=== PATIENT | female | born 1965 | race Caucasian/White ===

== ENCOUNTER → 2021-10-22 11:25 | Outpatient (BNVA) | payer SELFPAY | PROVIDERS: Family Provider Nurse Practitioner Primary Care; Visit Provider Family Medicine | DX: S82.432A Displaced oblique fracture of shaft of left fibula, initial encounter for closed fracture (principal); W19.XXXA Unspecified fall, initial encounter; M79.672 Pain in left foot | CPT/HCPCS: 73610; 73630 ==

== ENCOUNTER → 2021-11-28 10:04 | Outpatient (BNVA) | payer SELFPAY | PROVIDERS: Family Provider Nurse Practitioner Primary Care; Visit Provider Orthopaedic Surgery | DX: S82.839A Other fracture of upper and lower end of unspecified fibula, initial encounter for closed fracture (principal); X58.XXXA Exposure to other specified factors, initial encounter | CPT/HCPCS: 73610 ==

== ENCOUNTER 2023-07-25 21:00 | Emergency (ER) | payer SELFPAY ==
[2023-07-25 21:12] VITALS: BP 133/86; PULSE 82; RESP 18; TEMP 36.6; O2SAT 98; BMI 38.7
[2023-07-25 21:40] LABS: Basophils # 0.1 10^3/uL (0.0-0.1); Basophils % 0.4 %; Eosinophils # 0.1 10^3/uL (0.0-0.8); Eosinophils % 0.5 %; Hematocrit 46.1 % (36-47); Lymphocytes # 2.2 10^3/uL (0.8-4.8); Lymphocytes % 14.4 %; Mean Corpuscular HGB Conc 30.2 g/dL (30-55); Mean Corpuscular Hemoglobin 29.4 pg (27-33); Mean Corpuscular Volume 97.7 fl (85-98); Mean Platelet Volume 8.8 fL (7.4-10.4); Monocytes # 0.6 10^3/uL (0.2-0.9); Monocytes % 4.2 %; Neutrophils # 12.14 10^3/uL (1.8-7.7); Nucleated Red Blood Cells % 0 %; Platelet Count 342 10^3/cmm (157-399); Red Blood Count 4.72 10^6/uL (3.85-5.65); Red Cell Distribution Width 13.7 % (12.1-15.1); White Blood Count 15.16 10^3/uL (3.29-11.43)
[2023-07-25 21:50] LABS: Alanine Aminotransferase 16 U/L (0-33); Albumin Level 4.1 g/dL (3.5-5.2); Alkaline Phosphatase 62 U/L (35-105); Aspartate Amino Transferase 18 U/L (0-32); Blood Urea Nitrogen 12 mg/dL (6-20); Carbon Dioxide 19 mmol/L (22-29); Chloride 102 mmol/L (98-107); Globulin 3.7 g/dL (1.3-4.6); Glomerular Filtration Rate 86.2 mL/min (90-130); Glucose 154 mg/dL (65-115); Lipase 46 U/L (13-60); Osmolality Calculated 283 mOsm/kg (285-295); Sodium 135 mmol/L (136-145); Total Bilirubin 0.2 mg/dL (0.15-1.2); Total Protein 7.8 g/dL (6.6-8.7)
[2023-07-25 21:53] LABS: Anion Gap 18.1 (5-19); Potassium 4.1 mmol/L (3.5-5.1)
== END 2023-07-25 23:33 | disposition left against medical advice (07) ==
LOC: ER 21:06
PROVIDERS: Nurse Practitioner Family; Emergency Provider Family Medicine; PCP Nurse Practitioner Primary Care
DX: Z53.21 Procedure and treatment not carried out due to patient leaving prior to being seen by health care provider (principal)
CPT/HCPCS: 36415; 80053; 83690; 85025

== ENCOUNTER 2025-03-10 07:59 | Emergency (ER) | payer SELFPAY ==
[2025-03-10 08:05] VITALS: BP 172/106; PULSE 120; RESP 20; TEMP 36.9; O2SAT 100
--- NOTE | 2025-03-10 08:33 | CT_ITS ---
WS: [id number] CT ABDOMEN AND PELVIS WITH CONTRAST HISTORY: pain rt flank/ruq TECHNIQUE: Imaging performed of the abdomen and pelvis with IV contrast. Single phase imaging of the abdomen. Coronal and sagittal reformats are submitted. All CT scans at [facility] use at least one of these dose optimization techniques: automated exposure control; mA and/or kV adjustment per patient size (includes targeted exams where dose is matched to clinical indication); or iterative reconstruction. IV CONTRAST: Omnipaque 350; 100 mL IV. Oral contrast: No DLP: 1053.05 mGy.cm COMPARISON: 10/28/2016 Lower thorax: Breathing motion artifact at the lung bases. Heart is normal size. Small hiatal hernia. Small lymph node adjacent to the distal esophagus. Liver/biliary system: Normal size with no intrahepatic dilatation. Gallbladder: Gallbladder is hydropic measuring 6.5 cm in diameter. There is mild wall thickening and pericholecystic edema. Stones are identified within the gallbladder on a recent ultrasound. The stones are not identified by CT. Normal common bile duct. Pancreas: Normal size pancreas and pancreatic duct. No adjacent inflammation. Spleen: Normal size spleen. No mass or infarct. Adrenal glands: Normal. Right kidney: Normal size kidney. There is mild cortical thinning but no obstruction. Left kidney: Nonobstructing calcification central renal pelvis. Aorta: Mild atherosclerosis with no aneurysm. Lymphadenopathy: None. Free fluid: None. GI tract: No GI tract obstruction. Stomach is not distended. Inflammation from the gallbladder is in mild contact with the hepatic flexure with a small amount of inflammation extending to the mucosa. Abdominal wall: Fat containing umbilical hernia. Pelvis: Uterus is present. Enhancing mass consistent with fibroid extending from the posterior LEFT lateral uterus measures 3.6 x 3.6 cm. Bones: Unremarkable. CT/CT abdomen pelvis w con* [id number] IMPRESSION: 1. Early mild changes of acute cholecystitis. Hydropic gallbladder with perich olecystic fat stranding and edema. Gallstones are also noted on the recent ultr asound. 2. No hepatobiliary duct dilatation. Normal size common bile duct. 3. No renal obstruction. 4. Normal appendix. 5. Fibroid uterus.
--- NOTE | 2025-03-10 08:33 | US_ITS ---
WS: [id number] RIGHT UPPER QUADRANT ULTRASOUND HISTORY: RUQ pain COMPARISON: None available. Liver: 15.6 cm in length. Normal size liver and echogenicity. No bile duct dilatation or mass. Portal Vein: Normal hepatopetal flow with monophasic waveform. Gallbladder: Slightly overly distended gallbladder with stones. No wall thickening or para cholecystic fluid. CBD: 0.5 cm Pancreas: Completely obscured by bowel gas. Right kidney: 9.9 cm in length. Normal size kidney. Mild diffuse thinning of the renal parenchyma. No hydronephrosis. Aorta and IVC: Unremarkable abdominal aorta and IVC. No ascites. US/US abdomen limited [id number] IMPRESSION: 1. Cholelithiasis without evidence for acute cholecystitis. 2. No hepatobiliary duct dilatation.
--- NOTE | 2025-03-10 08:38 | ECG_ITS ---
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
--- NOTE | 2025-03-10 08:40 | W.ED.ABDPA2 ---
HPI - Abdominal Pain General: Chief Complaint: Abdominal Pain Stated Complaint: abd pain Time Seen by Provider: 03/10/25 08:07 History of Present Illness: Chief complaint is right flank pain. Patient states she has been having intermittent episodes of this pain for about a year now. She states usually the go away but this 1 has been going on since yesterday morning. She also did vomit 1 time. Its primarily right flank but does go across the back in a band. She states sometimes it is real severe will radiate to the right upper quadrant. She states it is her gallbladder. Related Data Home Medications ?Medication ?Instructions ?Recorded ?Confirmed lovastatin 40 mg tablet 40 mg PO DAILY 10/22/21 03/10/25 aspirin 81 mg tablet,delayed 81 mg PO DAILY 03/10/25 03/10/25 release (Justin Low Dose Aspirin) conj estrogen-medroxyprogesterone 1 tab PO DAILY 03/10/25 03/10/25 0.625 mg-5 mg tablet (Prempro) diltiazem HCl 240 mg capsule,24 240 mg PO DAILY 03/10/25 03/10/25 hr,extended release (Tiadylt ER) fluoxetine 20 mg capsule 20 mg PO QAM 03/10/25 03/10/25 propranolol 20 mg tablet 20 mg PO BID 03/10/25 03/10/25 Previous Rx's ?Medication ?Instructions ?Recorded amoxicillin 500 mg-potassium 1 tab PO BID #14 tabs 03/10/25 clavulanate 125 mg tablet (Augmentin) hydrocodone 5 mg-acetaminophen 325 1 tab PO Q6H PRN pain #10 tabs 03/10/25 mg tablet ondansetron 4 mg disintegrating 4 mg PO Q8H PRN nausea and 03/10/25 tablet vomiting 4 days #14 tabs Allergies Allergy/AdvReac Type Severity Reaction Status Date / Time No Known Allergies Allergy Verified 07/25/23 21:15 [facility] PFSH: Social History Smoking and tobacco/nicotine status: current every day tobacco/nicotine user Physical Exam Narrative: EXAM NARRATIVE: Alert oriented no acute distress. She is moving freely in the bed. No CVA tenderness. No vertebral tenderness on her back. She moves her back freely. Neck is supple. Conjunctive is normal. Speech is clear. Intact motor and sensation in her arms and legs. Abdomen was soft nontender no guarding or rebound. Negative Fong's. No palpable mass. No rash on exposed areas. Heart regular rhythm without rubs or murmurs. Lung sounds are clear. No splinting with respiration Course Vital Signs: Vital signs: Vital Signs Temperature 98.4 F 03/10/25 08:05 Pulse Rate 86 03/10/25 11:21 Respiratory Rate 18 03/10/25 10:30 Blood Pressure 162/85 03/10/25 11:21 Pulse Oximetry 100 03/10/25 11:21 Oxygen Delivery Me thod Room Air 03/10/25 11:21 MDM - Abdominal Pain Medical Decision Making Patient presents complaining of recurrent episodes of gallbladder pain. She states she has had outpatient ultrasound. She states she has been having these episodes for about a year. The pain is in a band across her back but mainly in the right flank area. She states it is not pleuritic and no shortness of breath. No history of PE or DVT or recent immobility or leg pain or swelling. No cough. No chest pain. She denies any fever. No black or bloody stools or black or bloody emesis. She states she gets these episodes frequently and her last episode was . She states usually however it will go away that same day or by the next morning but this 1 started yesterday morning and has not gone away yet so she decided to come in. She also did have some dry heaving with it. She states she did not actually throw anything up. She denies any chest pain to suggest cardiac ischemia and she denies known history of heart disease but will screen EKG and troponin. Will check lipase for pancreatitis. Will check right upper quadrant ultrasound for acute cholecystitis. Musculoskeletal also considered in the differential. She moves freely however and has no vertebral tenderness on her back and states it does not hurt to move and denies any fall or injury. She denies any known cancer or immunosuppression. She denies any numbness weakness or tingling in her arms or legs or loss of bowel or bladder control or radiation of pain to the legs. Pain does not migrate up or down and denies history of aneurysms. Not suggestive of AAA or dissection. Biliary colic considered, acute cholecystitis, renal colic, pyelonephritis, broad differential. She states she did drive but she states she can get a ride when I discussed with her pain treatment options and does not want fentanyl. I ordered 50 mcg of fentanyl IV for pain, 4 mg Zofran IV for nausea 1 L normal saline IV fluid bolus and CBC CMP lipase troponin and EKG CT and ultrasound. Patient states she feels much better after the fentanyl. She is alert and oriented. CT showed possible cholecystitis mild. Gallbladder ultrasound did not show evidence of acute cholecystitis but does show gallstones. Patient liver enzymes are mildly elevated white count mildly elevated. Lipase was not elevated. Patient states she would rather do outpatient surgery then to be admitted. I consulted Dr. Yovany Stark who recommends Augmentin and outpatient management will see the patient in the office. Will prescribe Augmentin, short course hydrocodone and Zofran for pain and nausea. I advised patient however potential treatment failure, bile duct stone development, worsening of her condition. I advised close outpatient follow-up and return instructions. Advised risks of opiates including hydrocodone. Lab Data 03/10/25 08:54 03/10/25 08:54 Labs/Radiology: Radiology Impressions Abdomen Ultrasound 03/10/25 08:33 IMPRESSION: 1. Cholelithiasis without evidence for acute cholecystitis. 2. No hepatobiliary duct dilatation. Abdomen/Pelvis CT 03/10/25 08:33 IMPRESSION: 1. Early mild changes of acute cholecystitis. Hydropic gallbladder with pericholecystic fat stranding and edema. Gallstones are also noted on the recent ultrasound. 2. No hepatobiliary duct dilatation. Normal size common bile duct. 3. No renal obstruction. 4. Normal appendix. 5. Fibroid uterus. Laboratory Results WBC 13.79 10^3/uL (3.29-11.43) H 03/10/25 08:54 RBC 4.38 10^6/uL (3.85-5.65) 03/10/25 08:54 Hgb 12.80 g/dL (11.27-16.99) 03/10/25 08:54 Hct 41.2 % (36-47) 03/10/25 08:54 MCV 94.1 fl (85-98) 03/10/25 08:54 MCH 29.2 pg (27-33) 03/10/25 08:54 MCHC 31.1 g/dL (30-55) 03/10/25 08:54 RDW 14.1 % (12.1-15.1) 03/10/25 08:54 Plt Count 358 10^3/cmm (157-399) 03/10/25 08:54 MPV 8.6 fL (7.4-10.4) 03/10/25 08:54 Neut % (Auto) 79.4 % 03/10/25 08:54 Lymph % (Auto) 13.4 % 03/10/25 08:54 [place] % (Auto) 6.3 % 03/10/25 08:54 Eos % (Auto) 0.2 % 03/10/25 08:54 Baso % (Auto) 0.3 % 03/10/25 08:54 Neut # (Auto) 10.95 10^3/uL (1.8-7.7) H 03/10/25 08:54 Lymph # (Auto) 1.9 10^3/uL (0.8-4.8) 03/10/25 08:54 [place] # (Auto) 0.9 10^3/uL (0.2-0.9) 03/10/25 08:54 Eos # (Auto) 0.0 10^3/uL (0.0-0.8) 03/10/25 08:54 Baso # (Auto) 0.0 10^3/uL (0.0-0.1) 03/10/25 08:54 Nucleated RBC % (auto) 0 % 03/10/25 08:54 Nucleated RBCs # 0.0 /100WBC 03/10/25 08:54 Sodium 134 mmol/L (136-145) L 03/10/25 08:54 Potassium 3.6 mmol/L (3.5-5.1) 03/10/25 08:54 Chloride 99 mmol/L (98-107) 03/10/25 08:54 Carbon Dioxide 21 mmol/L (22-29) L 03/10/25 08:54 Anion Gap 17.6 (5-19) 03/10/25 08:54 BUN 6 mg/dL (6-20) 03/10/25 08:54 Creatinine 0.6 mg/dL (0.5-0.9) 03/10/25 08:54 GFR Calculation 102.3 mL/min (90-130) 03/10/25 08:54 Glucose 112 mg/dL (65-115) 03/10/25 08:54 Calculated Osmolality 276 mOsm/kg (285-295) L 03/10/25 08:54 Calcium 8.9 mg/dL (8.5-10.5) 03/10/25 08:54 Total Bilirubin 0.8 mg/dL (0.15-1.2) 03/10/25 08:54 AST 167 U/L (0-32) H 03/10/25 08:54 ALT 186 U/L (0-33) H 03/10/25 08:54 Alkaline Phosphatase 111 U/L (35-105) H 03/10/25 08:54 Troponin T Baseline < 6 ng/L (0-10) 03/10/25 08:54 Total Protein 7.6 g/dL (6.6-8.7) 03/10/25 08:54 Albumin 4.0 g/dL (3.5-5.2) 03/10/25 08:54 Globulin 3.6 g/dL (1.3-4.6) 03/10/25 08:54 Lipase 25 U/L (13-60) 03/10/25 08:54 HCG, Qual Negative (Negative) 03/10/25 08:54 Urine Color [place] (Yellow) A 03/10/25 09:54 Urine Appearance Clear (CLEAR) 03/10/25 09:54 Urine pH 6.5 (5-7) 03/10/25 09:54 Ur Specific [place] 1.045 (1.005-1.030) H 03/10/25 09:54 Urine Protein Trace (Negative) A 03/10/25 09:54 Urine Glucose (UA) Negative (Normal) 03/10/25 09:54 Urine Ketones Negative (Negative) 03/10/25 09:54 Urine Blood Negative (Negative) 03/10/25 09:54 Urine Nitrate Negative (Negative) 03/10/25 09:54 Urine Bilirubin Negative (Negative) 03/10/25 09:54 Urine Urobilinogen 1.0 mg/dL (Negative) 03/10/25 09:54 Ur Leukocyte Esterase Negative (Negative) 03/10/25 09:54 Urine RBC 6-10 /hpf (0-2) 03/10/25 09:54 Urine WBC 0-5 /hpf (0-5) 03/10/25 09:54 Ur Squamous Epith Cells 0-5 /hpf (0-5) 03/10/25 09:54 Amorphous Sediment Not Reportable 03/10/25 09:54 Urine Bacteria 1+ /hpf (NONE) H 03/10/25 09:54 Hyaline Casts 0.40 /lpf 03/10/25 09:54 All radiology interpretation(s) finalized by discharge Discharge Plan Discharge Patient Disposition: Home Clinical Impression: Biliary colic, Cholelithiasis Condition: Stable Prescriptions: New hydrocodone-acetaminophen 5-325 mg tablet 1 tab PO Q6H PRN (Reason: pain) Qty: 10 0RF ondansetron 4 mg tablet,disintegrating 4 mg PO Q8H PRN (Reason: nausea and vomiting) 4 Days Qty: 14 0RF amoxicillin-pot clavulanate [Augmentin] 500-125 mg tablet 1 tab PO BID Qty: 14 0RF No Action lovastatin 40 mg tablet 40 mg PO DAILY diltiazem HCl [Tiadylt ER] 240 mg capsule,extended release 24 hr 240 mg PO DAILY aspirin [Justin Low Dose Aspirin] 81 mg Tablet,Delayed Release (Dr/Ec) 81 mg PO DAILY Prempro 0.625-5 mg tablet 1 tab PO DAILY propranolol 20 mg tablet 20 mg PO BID fluoxetine 20 mg capsule 20 mg PO QAM Discharge Orders: Discharge ED (Routine); Ordered 03/10/25 Ordered By: Danilo Hebert Referrals: Leighton Vanessa MD [Physician, General Surgery] Referral Note: Follow-up in 1 to 2 weeks. Clinical Impression: Cholelithiasis; Biliary colic Crissy Swenson FNP [Primary Care Provider, Nurse Practitioner] Discharge Diet: As Directed Patient Instructions: Cholecystitis (ED), Abdominal Pain (ED), Opioid Safety, Pain Management Activity Restrictions/Additional Instructions: Avoid all foods containing fat until you have your gallbladder removed. Please come back if fever, vomiting, worsening pain, trouble breathing, any worse or concerns. Print Language: Albanian Coding Level of Care Code ED Fast Food Shift Supervisor for Rosaline Pérez
[2025-03-10 09:00] LABS: Basophils % 0.3 %; Eosinophils % 0.2 %; Hematocrit 41.2 % (36-47); Lymphocytes # 1.9 10^3/uL (0.8-4.8); Lymphocytes % 13.4 %; Mean Corpuscular HGB Conc 31.1 g/dL (30-55); Mean Corpuscular Hemoglobin 29.2 pg (27-33); Mean Corpuscular Volume 94.1 fl (85-98); Mean Platelet Volume 8.6 fL (7.4-10.4); Monocytes # 0.9 10^3/uL (0.2-0.9); Monocytes % 6.3 %; Neutrophils # 10.95 10^3/uL (1.8-7.7); Neutrophils % 79.4 %; Nucleated Red Blood Cells % 0 %; Platelet Count 358 10^3/cmm (157-399); Red Blood Count 4.38 10^6/uL (3.85-5.65); Red Cell Distribution Width 14.1 % (12.1-15.1); White Blood Count 13.79 10^3/uL (3.29-11.43)
[2025-03-10 09:12] LABS: HCG, Serum Qual Negative (Negative)
[2025-03-10 09:18] LABS: Troponin(5th) Baseline < 6 ng/L (0-10)
[2025-03-10 09:20] LABS: Alanine Aminotransferase 186 U/L (0-33); Alkaline Phosphatase 111 U/L (35-105); Anion Gap 17.6 (5-19); Aspartate Amino Transferase 167 U/L (0-32); Blood Urea Nitrogen 6 mg/dL (6-20); Calcium 8.9 mg/dL (8.5-10.5); Carbon Dioxide 21 mmol/L (22-29); Chloride 99 mmol/L (98-107); Creatinine Clr Calc Pharmacy 128.4186; Globulin 3.6 g/dL (1.3-4.6); Glomerular Filtration Rate 102.3 mL/min (90-130); Glucose 112 mg/dL (65-115); Lipase 25 U/L (13-60); Osmolality Calculated 276 mOsm/kg (285-295); Potassium 3.6 mmol/L (3.5-5.1); Sodium 134 mmol/L (136-145); Total Bilirubin 0.8 mg/dL (0.15-1.2); Total Protein 7.6 g/dL (6.6-8.7)
[2025-03-10] MEDS: iohexol 350 mg/mL 500 mL Btl (per mL) IV (09:30)
[2025-03-10] MEDS: fentaNYL 50 mcg/mL INJ 2mL IVP (09:47)
[2025-03-10] MEDS: sodium chloride 0.9% 1,000 ML 999 ML IV (09:47)
[2025-03-10] MEDS: ondansetron 2 mg/ML SDV 2 mL 4 MG IVP (09:47)
[2025-03-10 09:58] VITALS: BP 149/90; PULSE 103; O2SAT 98
[2025-03-10 10:07] LABS: Bilirubin Urine Negative (Negative); Blood Urine Negative (Negative); Glucose Urine UA Negative (Normal); Ketones Urine Negative (Negative); Leukocyte Esterase Urine Negative (Negative); Nitrate Urine Negative (Negative); Protein Urine Trace (Negative); Urine Appearance Clear (CLEAR); pH Urine 6.5 (5-7)
[2025-03-10 10:12] LABS: Add Urine Microscopic? YES; Bacteria Urine 1+ /hpf; Squamous Epithelial Cell Urine 0-5 /hpf (0-5); WBC Urine 0-5 /hpf (0-5)
[2025-03-10 10:24] LABS: Specific Gravity, Urine 1.045 (1.005-1.030); Urine Color Orange (Yellow)
[2025-03-10 10:30] VITALS: BP 153/118; PULSE 92; RESP 18; O2SAT 100
[2025-03-10 11:21] VITALS: BP 162/85; PULSE 86; O2SAT 100
[2025-03-10 12:03] VITALS: BP 147/105; PULSE 93; O2SAT 96
--- NOTE | 2025-03-11 08:39 | DCPLANNER ---
messaged gen surg for er f/u
== END 2025-03-10 12:04 | disposition home or self-care (01) ==
PROVIDERS: Emergency Provider Emergency Medicine; PCP Nurse Practitioner Primary Care
DX: K80.70 Calculus of gallbladder and bile duct without cholecystitis without obstruction (principal)
CPT/HCPCS: 12345; 36415; 74177; 76705; 80053; 81001; 83690; 84484; 84703; 85025; 93005; 96361; 96374; 96375; 99285; J2405; J3010; J7030

== ENCOUNTER → 2025-07-27 11:34 | Outpatient (BNVA) | payer BC, MEDICAID, SELFPAY | PROVIDERS: PCP Nurse Practitioner Primary Care; Visit Provider Orthopaedic Surgery | DX: M17.11 Unilateral primary osteoarthritis, right knee (principal); G89.29 Other chronic pain | CPT/HCPCS: 73560; 73565 ==

== ENCOUNTER → 2025-09-16 13:20 | Outpatient (BNVA) | payer BC, MEDICAID, SELFPAY | PROVIDERS: PCP Nurse Practitioner Primary Care; Referring Provider Nurse Practitioner Primary Care; Visit Provider Internal Medicine | DX: R07.9 Chest pain, unspecified (principal) | CPT/HCPCS: 93005 ==

== ENCOUNTER 2025-09-27 10:12 | Outpatient (CLI) | payer BC, MEDICAID, SELFPAY ==
--- NOTE | 2025-09-27 | ECG_ITS ---
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 The perfusion scan will be documented separately. DATA: Baseline heart rate was 100 beats per minute. Baseline blood pressure was 188/97 millimeters of mercury. Target heart rate was 161. Maximum heart rate achieved was 126. which was 78% of the predicted target heart rate. Maximum blood pressure was 188/97 millimeters of mercury. The reason for ending the test was completion of the protocol. The patient did not experience any symptoms. ELECTROCARDIOGRAM: BASELINE: Sinus rhythm. Normal axis. Otherwise, no ST-T changes suggestive of ischemia noted. No arrhythmia noted. EXERCISE: After Lexiscan injection, no ST-T changes suggestive of ischemic noted. No arrhythmia noted. CONCLUSION: Please note due to baseline abnormality of the EKG specificity and sensitivity of the EKG portion of LexiScan MIBI stress test will be low 1. EKG not suggestive of ischemia 2. Lexiscan injection unremarkable. 3. Perfusion scan will be documented separately. Electronically Signed On 09-27-2025 12:15:51 CLAY PREPARATION SUPERVISOR by BOB MINAYA [email or web address] [id number]
[2025-09-27 10:32] VITALS: BMI 39.0
--- NOTE | 2025-09-27 10:32 | NMCV_ITS ---
NM yuliya perf SPECT r/s* [id number] Nancy Villarreal Age: 60 Gender: F : 1965 Exam Date: 09/27/2025 11:07 Ordering Phys: Jluis Newman M.D ([email or web address]) Technologist: SHARRI Cisse Exam Location: [facility] Indications: cp STRESS TEST Please see separate stress test report in [facility] for full findings IMAGE PROTOCOL Rest/Stress 1 Lexiscan Day Radiopharmaceutical Dose (mCi) Administration Site Administered by Rest: Tc-99m 10.2 IV SHARRI Cisse Sestamibi Stress:Tc-99m 32.6 IV SHARRI Li Sestamibi Rest: 27-Sep-2025 60 Discovery 630 Stress: 27-Sep-2025 30 Discovery 630 0.4mg Lexiscan. Supine position only as patient was unable to lay prone. SPECT RESULTS Technical Quality: Good Raw Data Analysis: Normal Image Corrections: No attenuation or motion correction applied Summed Stress Score: 0 Summed Rest Score: 2 Summed Difference Score: 0 PERFUSION FINDINGS Fairly uniform myocardial tracer uptake with no significant perfusion abnormalities FUNCTIONAL RESULTS (calculated via Gated SPECT) Stress Image LV EF (%): 76 Stress EDV (mL):66 TID: 1.03 Stress ESV (mL):16 FUNCTIONAL FINDINGS: Segmental wall motion analysis revealing no gross wall motion abnormalities IMPRESSIONS 1. Myocardial perfusion imaging revealing uniform myocardial tracer uptake with no significant perfusion abnormalities 2. Normal LV ejection fraction of 76% 3. LV wall motion analysis revealing no gross wall motion abnormalities. 4. Normal LV volume Low probability for coronary ischemia, based on the above findings Dr Ca Villareal MD FACC (Electronically Signed) Final Date: 27 September 2025 22:01 S
[2025-09-27 11:44] VITALS: BP 157/80; PULSE 102
== END 2025-09-27 10:13 | disposition home or self-care (01) ==
LOC: CDL 10:13
PROVIDERS: PCP Nurse Practitioner Primary Care; Visit Provider Internal Medicine
DX: R07.9 Chest pain, unspecified (principal); R06.02 Shortness of breath; I49.8 Other specified cardiac arrhythmias
CPT/HCPCS: 78452; 93017; A9500; J2785